=== PATIENT | female | born 1985 | race Caucasian/White ===

== ENCOUNTER 2019-08-05 18:35 | Emergency (ER) | payer SELFPAY ==
[2019-08-05] MEDS ORDERED: methylPREDNISolone NA SUCC 125 MG/2 ML VIAL IVPUSH ONE (19:16)
[2019-08-05 19:28] VITALS: TEMP 98.6; BMI 23.1
[2019-08-05] MEDS ORDERED: FAMOTIDINE 20 MG/50 ML IVPB 20 MG/50 ML MG IVPB ONE (19:30)
--- NOTE | 2019-08-05 20:51 | PDOC ---
Documentation entered by Angeal Ricci SCRIBE, acting as scribe for Gloria Jackson MD. Gloria Jackson MD: This documentation has been prepared by the Radhames abad Aiswarya, SCRIBE, under my direction and personally reviewed by me in its entirety. I confirm that the documentation accurately reflects all work, treatment, procedures, and medical decision making performed by me. History of Present Illness - General Chief Complaint: Allergic Reaction Stated Complaint: ALLERGIC REACTION History Source: Patient Exam Limitations: Language Barrier - History of Present Illness Initial Comments: 08/05/19 19:35 Assessment and plan: This is a 33-year-old female who comes in complaining of an allergic reaction to some pork products that she ate accidentally. Patient did have a little angioedema of her oropharynx otherwise her lungs were clear and she did vomit prior to arrival. Patient given prednisone, Benadryl, and Pepcid. Patient will be observed for 2 hours if symptoms continue to improve she will be discharged home with a Medrol Dosepak. 08/05/19 19:49 The patient is a 33 year old female, with no significant PMH, who presents to the emergency department for evaluation of an allergic reaction after consuming pork today. The patient states she had pork today at 4 pm and endorsed one episode of vomiting and angioedema. She denies chest pain, shortness of breath, headache and dizziness. Denies fever, chills, nausea, diarrhea and constipation. PAST MEDICAL HISTORY: no significant history PAST SURGICAL HISTORY: appendectomy FAMILY HISTORY: no pertinent history SOCIAL HISTORY: Pt lives with family and is employed. MEDICATIONS: reviewed ALLERGIES: As per nursing notes Adult ROS General: No fevers or chills, no weakness, no weight loss HEENT: No change in vision. No ear pain CardioVascular: No chest pain or shortness of breath Respiratory:No cough, or wheezing. Gastrointestinal :+vomiting. no nausea, diarrhea or constipation, No rectal bleeding Genitourinary: No dysuria, hematuria, or frequency Musculoskeletal: No joint or muscle pain or swelling Neurologic: No headache, vertigo, dizziness or loss of consciousness Psychiatric: nor depression Skin: No rashes or easy bruising Endocrine: no increased thirst or abnormal weight change Allergic: no skin or latex allergy All other systems reviewed and normal Basic PE GENERAL: The patient is awake, alert, and fully oriented, in no acute distress. HEAD: Normal with no signs of trauma. THROAT: +Mild angioedema to the posteriorly oropharynx EYES: Pupils equal, round and reactive to light, extraocular movements intact, sclera anicteric, conjunctiva clear. Respiratory: Lungs clear to auscultation bilateral EXTREMITIES: Normal range of motion, no edema. NEUROLOGICAL: Normal speech, normal gait. PSYCH: Normal mood, normal affect. SKIN: Warm, Dry, normal turgor, no rashes or lesions noted. Past History - Past Medical History Allergies/Adverse Reactions: Allergies Allergy/AdvReac Type Severity Reaction Status Date / Time Pork/Porcine Containing Allergy Intermediate Verified 08/05/19 19:16 Products Home Medications: Ambulatory Orders Methylprednisolone [Medrol Dose Nikolai] 4 mg PO ASDIR #21 tablet 08/05/19 COPD: No - Surgical History Appendectomy: Yes - Psycho Social/Smoking Cessation Hx Smoking History: Never smoked Hx Alcohol Use: No Drug/Substance Use Hx: No *Physical Exam - Vital Signs Last Vital Signs Temp Pulse Resp BP Pulse Ox 98.6 F 100 H 18 126/90 100 08/05/19 19:11 08/05/19 19:11 08/05/19 19:11 08/05/19 19:11 08/05/19 19:11 ED Treatment Course - Medications Given in the ED: ED Medications Discontinued Medications Generic Name Dose Route Start Last Admin Trade Name Freq PRN Reason Stop Dose Admin Diphenhydramine HCl 25 mg 08/05/19 19:16 08/05/19 19:17 Benadryl Injection - IVPUSH 08/05/19 19:17 25 mg ONCE ONE Administration Methylprednisolone Sodium Succinate 125 mg 08/05/19 19:16 08/05/19 19:18 Solu-Medrol - IVPUSH 08/05/19 19:17 125 mg ONCE ONE Administration Discharge - Discharge Information Problems reviewed: Yes Clinical Impression/Diagnosis: Allergic reaction to food Qualifiers: Encounter type: initial encounter Qualified Code(s): T78.1XXA - Other adverse food reactions, not elsewhere classified, initial encounter Condition: Stable Disposition: HOME - Admission No - Follow up/Referral - Patient Discharge Instructions Additional Instructions: Get the prescription filled for the Medrol Dosepak and take as per package directions in addition to the Medrol Dosepak if you have any further. Symptoms you can also take Benadryl 1 to 2 tablets as often as every 6 hours. Return to the emergency department immediately with ANY new, persistent or worsening symptoms. Continue any medications as previously prescribed by your physician. You should follow up with your primary doctor as soon as possible regarding today's emergency department visit. . Please make sure your doctor reviews the results of your emergency evaluation. Thank you for coming to the Emergency Department today for your care. It was a pleasure to see you today. Please note that your evaluation is INCOMPLETE until you follow-up with your doctor. - Post Discharge Activity
[2019-08-05 20:57] VITALS: BP 116/80; PULSE 88
== END 2019-08-05 20:59 | disposition home or self-care (01) ==
LOC: FER 18:35
PROC: 3E033GC Introduction of Other Therapeutic Substance into Peripheral Vein, Percutaneous Approach (ICD-10-PCS; principal; 2019-08-05)
DX: T78.1XXA Other adverse food reactions, not elsewhere classified, initial encounter (principal); Z91.018 Allergy to other foods
CPT/HCPCS: 99283-25

== ENCOUNTER 2020-02-18 18:00 | Emergency (ER) | payer SELFPAY ==
--- NOTE | 2020-02-18 18:07 | PDOC ---
History of Present Illness - General Chief Complaint: Allergic Reaction Stated Complaint: ALLERGIC REACTION - History of Present Illness Initial Comments: 02/18/20 19:09 34y/o F hx of allergic reactions to pork, presents to the ED after an allerigic reaction at around 3:30 pm this afternoon while at work. 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 pt reports she may have used utensils that were also used for pork. She felt her throat closing, and was SOB, pt was able to use her epi pen which relieved her symptoms. At the time of this hx, she denies chest pain, cough, shortness of breath or hives. PMHx: as noted above ROS: as noted SHx: Denies Etoh, IVDA, tobacco use Allergies: NKDA ROS: GENERAL/CONSTITUTIONAL: No fever or chills. No weakness. HEAD, EYES, EARS, NOSE AND THROAT: No change in vision. No ear pain or discharge. No sore throat. CARDIOVASCULAR: No chest pain or shortness of breath RESPIRATORY: No cough, wheezing, or hemoptysis. GASTROINTESTINAL: No nausea, vomiting, diarrhea or constipation. GENITOURINARY: No dysuria, frequency, or change in urination. MUSCULOSKELETAL: No joint or muscle swelling or pain. No neck or back pain. SKIN: No rash NEUROLOGIC: No headache, vertigo, loss of consciousness, or change in strength/sensation. ENDOCRINE: No increased thirst. No abnormal weight change HEMATOLOGIC/LYMPHATIC: No anemia, easy bleeding, or history of blood clots. ALLERGIC/IMMUNOLOGIC: No hives or skin allergy. PE: GENERAL: Awake, alert, and fully oriented, in no acute distress HEAD: No signs of trauma, normocephalic, atraumatic EYES: PERRLA, EOMI, sclera anicteric, conjunctiva clear ENT: Auricles normal inspection, hearing grossly normal, nares patent, oropharynx clear without exudates. Moist mucosa NECK: Normal ROM, supple, no lymphadenopathy, JVD, or masses LUNGS: No distress, speaks full sentences, clear to auscultation bilaterally HEART: Regular rate and rhythm, normal S1 and S2, no murmurs, rubs or gallops, peripheral pulses normal and equal bilaterally. ABDOMEN: Soft, nontender, normoactive bowel sounds. No guarding, no rebound. No masses EXTREMITIES : Normal inspection, Normal range of motion, no edema. No clubbing or cyanosis NEUROLOGICAL: Cranial nerves II through XII grossly intact. Normal speech, normal gait, no focal sensorimotor deficits SKIN: Warm, Dry, normal turgor, no rashes or lesions noted 02/18/20 19:28 02/18/20 19:31 Past History - Medical History Allergies/Adverse Reactions: Allergies Allergy/AdvReac Type Severity Reaction Status Date / Time Pork/Porcine Containing Allergy Intermediate Verified 02/18/20 18:25 Products Home Medications: Ambulatory Orders Methylprednisolone [Medrol Dose Nikolai] 4 mg PO ASDIR #21 tablet 08/05/19 EPINEPHrine (EPIPEN JR 0.15MG) [Epipen Jr 0.15MG] 0.15 mg IM ASDIR PRN #2 pens 02/18/20 predniSONE [Deltasone -] 40 mg PO DAILY 4 Days #8 tablet 02/18/20 COPD: No - Surgical History Appendectomy: Yes - Psycho-Social/Smoking History Smoking History: Never smoked Medical Decision Making - Medical Decision Making 02/18/20 19:32 34y/o F hx of allergic reactions to pork, presents to the ED after an allerigic reaction at around 3:30 pm this afternoon while at work. 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 pt hypotensives no wheezing, hives at this time no oropharyngeal swelling/erythema will obeserve in ED and give po prednisone if all well d/c with prednisone. 02/18/20 22:08 pt doing well, resting comfortably will d/c with allergy follow up and epipen. Discharge - Discharge Information Problems reviewed: Yes Clinical Impression/Diagnosis: Allergic reaction Condition: Improved - Admission No - Additional Discharge Information Prescriptions: predniSONE [Deltasone -] 40 mg PO DAILY 5 Days #10 tablet EPINEPHrine (EPIPEN JR 0.15MG) [Epipen Jr 0.15MG] 0.15 mg IM ASDIR PRN #2 pens PRN Reason: Allergies - Follow up/Referral Referrals: Luis Alfredo Patterson MD [Staff Physician] - - Patient Discharge Instructions Patient Printed Discharge Instructions: Anaphylaxis Additional Instructions: Domi un seguimiento con ellison (s) mdico (s) de atencin primaria dentro de 2-3 arana. Evite cualquier desencadenante conocido de leesa alergias. Le recomendamos que consulte con un alerglogo; le hemos proporcionado la informacin. Hemos enviado garfield receta para un Epi-Pen a ellison farmacia. Recjalo lo antes posible. Lleva siempre esto contigo. Hoy en el Departamento de Emergencias, hablamos sobre firearms sales associate usar el Epi-Pen solo en handy de garfield reaccin alrgica grave con dificultad para respirar o inflamacin de la garganta. Debe ir al hospital de inmediato si alguna vez usa el Epi-Pen. Recuerde que caducan todos los aos, por lo que debe pedirle a ellison mdico que le escriba garfield nueva receta cada ao. Hemos enviado garfield receta de prednisona a ellison farmacia. Recjalo lo antes posible y selo segn las indicaciones (40 mg garfield vez al da ministerio 4 arana ms). [place] Benadryl (tambin llamado difenhidramina) 25 mg cada 6-8 horas segn sea necesario para los sntomas de alergia adicionales (se puede comprar sin receta mdica); tenga en cuenta que Benadryl a menudo causa somnolencia, as que no conduzca, no tome decisiones importantes ni maneje maquinaria hasta que sepa firearms sales associate te afectar. Regrese al Departamento de Emergencias de inmediato si tiene algn empeoramiento o falta de aire nueva, cambios en ellison voz, opresin / picazn en la boca / garganta, hinchazn, urticaria severa, dolor de pecho, fiebre fuad. Existe garfield posibilidad muy pequea de que reaparezca la reaccin alrgica, generalmente en las prximas 24 horas. Si observa que regresan los mismos sntomas (sarpullido, dificultad para respirar, vmitos, etc.), regrese al Departamento de Emergencias de inmediato. Print Language: UPPER SORBIAN - Post Discharge Activity
[2020-02-18 18:25] VITALS: BMI 24.2
[2020-02-18] MEDS ORDERED: SODIUM CHLORIDE 0.9% 500 ML INFUS.BAG IV ONE (18:57)
[2020-02-18] MEDS ORDERED: predniSONE 20 MG TABLET (UD) PO ONE (18:57)
[2020-02-18] MEDS ORDERED: predniSONE 20 MG TABLET (UD) ONE (18:59)
[2020-02-18 20:13] VITALS: TEMP 97.9
[2020-02-18 22:32] VITALS: BP 109/73; PULSE 70
--- NOTE | 2020-02-28 12:06 | PDOC ---
Documentation entered by Audra Estrada SCRIBE, acting as scribe for Claribel Shanks MD. Claribel Shanks MD: This documentation has been prepared by the Natalie abad Sydney, SCRIBE, under my direction and personally reviewed by me in its entirety. I confirm that the documentation accurately reflects all work, treatment, procedures, and medical decision making performed by me. Attending Attestation - Resident Resident Name: AlexanderLenard - ED Attending Attestation I have performed the following: I have examined & evaluated the patient, The case was reviewed & discussed with the resident, I agree w/resident's findings & plan, Exceptions are as noted - HPI HPI: 02/18/20 18:44 Patient is a 34 year old female with a significant past medical history of allergic reactions who presents to the ED with an allergic reaction. 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 Patient endorses only an itchy throat during this episode. Patient states she used her Epi pen, relieving her symptoms. Denies hives or throat closing. Denies fever, chills, shortness of breath, nausea, vomiting, diarrhea, wheezing, cough, dizziness, lightheadedness, n/t/w focally, or any other symptoms. Allergies: Pork/porcine containing products - Physicial Exam PE: 02/18/20 18:44 GENERAL: well-appearing, A/Ox4, no distress, answers questions appropriately, very pleasant, Burkinan-speaking HEENT: PERRLA, EOMI, moist mucous membranes NECK/BACK: no midline ttp, no spinal stepoff or deformity, no hematoma, full ROM, neck supple CARDIOVASCULAR: regular rate/rhythm, no MGR, strong peripheral pulses, capillary refill <2 seconds, extremities wwp, no edema LUNGS/RESPIRATORY: no respiratory distress, CTAB GI/ABDOMEN: symmetric [id number], normoactive BS, soft, no ttp, no midline pulsatile masses : no CVA tenderness MSK/EXTREMITIES: no muscle atrophy, no acute deformity SKIN: warm and dry, no pallor, no jaundice, no rash or urticaria, no pathologic- appearing bruising, no skin breakdown, no cuts, no lesions NEUROLOGICAL: GCS 15, CN II-XII grossly intact, 5/5 strength proximally and d istally, no facial droop - Medical Decision Making Pt p/w apparent allergic reaction, very mild, itchy throat without any other symptoms, after having pork product which she knows she is allergic to. She used her own epi pen. Initial Vital Signs Temp Pulse Resp BP Pulse Ox 98.4 F 83 16 90/59 L 99 02/18/20 18:00 02/18/20 18:00 02/18/20 18:00 02/18/20 18:00 02/18/20 18:00 DDX IBNLT: modt likely very mild allergic rxn. Very unlikely angioedema or anaphylaxis given that she has benign exam. Provider Orders Category Date Time Status Sodium Chloride [Normal Saline -] Medication 02/18/20 18:57 Discontinued 1,000 ml IV ONCE ONE predniSONE [Deltasone -] Medication 02/18/20 18:59 Discontinued 60 mg .ROUTE .STK-MED ONE predniSONE [Deltasone -] Medication 02/18/20 18:57 Discontinued 60 mg PO ONCE ONE Medications Discontinued Medications Generic Name Dose Route Start Last Admin Trade Name Jeannine PRN Reason Stop Dose Admin Prednisone 60 mg 02/18/20 18:57 02/18/20 19:00 Deltasone - PO 02/18/20 18:58 60 mg ONCE ONE Administration Prednisone Confirm 02/18/20 18:59 Deltasone - Administered 02/18/20 19:00 Dose 60 mg .ROUTE .STK-MED ONE Sodium Chloride 1,000 ml 02/18/20 18:57 02/18/20 19:00 Normal Saline - IV 02/18/20 18:58 1,000 ml ONCE ONE Administration This Pt has gotten significant relief of symptoms while in the ED. On last reassessment, vitals are wnl, pain is reasonably controlled, and exam is benign. Workup is not concerning for emergency-level pathology at this time. This Pt is appropriate for discharge with close outPt follow up. They are comfortable with this plan and will follow up with PCP in 1-3 days. E-Rx sent for epipen and prednisone. Discharge - Discharge Information Problems reviewed: Yes Clinical Impression/Diagnosis: Allergic reaction Qualifiers: Encounter type: initial encounter Qualified Code(s): T78.40XA - Allergy, unspecified, initial encounter Condition: Improved Disposition: HOME - Admission No - Additional Discharge Information Prescriptions: predniSONE [Deltasone -] 40 mg PO DAILY 4 Days #8 tablet EPINEPHrine (EPIPEN JR 0.15MG) [Epipen Jr 0.15MG] 0.15 mg IM ASDIR PRN #2 pens PRN Reason: Allergies - Follow up/Referral Referrals: Luis Alfredo Patterson MD [Staff Physician] - - Patient Discharge Instructions Patient Printed Discharge Instructions: Anaphylaxis Additional Instructions: Domi un seguimiento con ellison (s) mdico (s) de atencin primaria dentro de 2-3 arana. Evite cualquier desencadenante conocido de leesa alergias. Le recomendamos que consulte con un alerglogo; le hemos proporcionado la informacin. Hemos enviado garfield receta para un Epi-Pen a ellison farmacia. Recjalo lo antes posible. Lleva siempre esto contigo. Hoy en el Departamento de Emergencias, hablamos sobre dock loader usar el Epi-Pen solo en handy de garfield reaccin alrgica grave con dificultad para respirar o inflamacin de la garganta. Debe ir al hospital de inmediato si alguna vez usa el Epi-Pen. Recuerde que caducan todos los aos, por lo que debe pedirle a ellison mdico que le escriba garfield nueva receta cada ao. Hemos enviado garfield receta de prednisona a ellison farmacia. Recjalo lo antes posible y selo segn las indicaciones (40 mg garfield vez al da ministerio 4 arana ms). [place] Benadryl (tambin llamado difenhidramina) 25 mg cada 6-8 horas segn sea necesario para los sntomas de alergia adicionales (se puede comprar sin receta mdica); tenga en cuenta que Benadryl a menudo causa somno lencia, as que no conduzca, no tome decisiones importantes ni maneje maquinaria hasta que sepa dock loader te afectar. Regrese al Departamento de Emergencias de inmediato si tiene algn empeoramiento o falta de aire nueva, cambios en ellison voz, opresin / picazn en la boca / garganta, hinchazn, urticaria severa, dolor de pecho, fiebre fuad. Existe garfield posibilidad muy pequea de que reaparezca la reaccin alrgica, generalmente en las prximas 24 horas. Si observa que regresan los mismos sntomas (sarpullido, dificultad para respirar, vmitos, etc.), regrese al Departamento de Emergencias de inmediato. Print Language: EQUATORIAL GUINEAN - Post Discharge Activity
== END 2020-02-18 22:31 | disposition home or self-care (01) ==
LOC: JER 18:00
DX: T78.40XA Allergy, unspecified, initial encounter (principal)
CPT/HCPCS: 99283-25

== ENCOUNTER 2023-01-08 21:43 | Emergency (ER) | payer OTHER ==
[2023-01-08] MEDS ORDERED: IBUPROFEN 600 MG TABLET (FP) PO ONE (22:01)
== END 2023-01-08 23:12 | disposition home or self-care (01) ==
LOC: FER 21:43
CPT/HCPCS: 73610-TC-RT-FY